=== PATIENT | female | born 1945 | race Caucasian/White ===

== ENCOUNTER 2019-09-14 08:37 | Day surgery (SDC) | payer MEDICARE, OTHER ==
[2019-09-14] VITALS (9 sets, daily range): BP systolic 125–166; BP diastolic 71–93
[~2019-09-14] VITALS: Ht 160 cm; Wt 120.2 kg
[~2019-09-14 08:37] MED LIST: METO50TA17 PO
[2019-09-14] MEDS ORDERED: normal saline 1,000 ML IV SCH (09:05)
[2019-09-14] MEDS ORDERED: diphenhydrAMINE 25mg capsule PO PRN (09:05)
[2019-09-14 09:40] LABS: BASOPHILS % (AUTO) 0.5 % (0-1); EOSINOPHILS # (AUTO) 0.2 X10'3 (0-0.9); EOSINOPHILS % (AUTO) 1.9 % (0-6); HEMATOCRIT 42.7 % (35.0-45.0); HEMOGLOBIN 14.6 g/dl (12.0-16.0); LYMPHOCYTES # (AUTO) 1.9 X10'3 (1.1-4.8); LYMPHOCYTES % (AUTO) 24.2 % (21-51); MEAN CORPUSCULAR HEMOGLOBIN 31.4 PG (27.0-31.0); MEAN CORPUSCULAR HGB CONC 34.2 g/dL (33.0-36.5); MEAN CORPUSCULAR VOLUME 91.6 FL (78-98); MEAN PLATELET VOLUME 8.2 FL (7.4-10.4); MONOCYTES # (AUTO) 0.5 X10'3 (0-0.9); MONOCYTES % (AUTO) 6.7 % (2-12); NEUTROPHILS # (AUTO) 5.4 X10'3 (1.8-7.7); NEUTROPHILS % (AUTO) 66.7 % (42-75); PLATELET COUNT 260 X10'3 (140-440); RED BLOOD COUNT 4.66 X10'6 (4.20-5.60); RED CELL DISTRIBUTION WIDTH 13.9 % (11.5-14.5)
[2019-09-14] MEDS ORDERED: GABA-532 PO (09:46)
[2019-09-14] MEDS ORDERED: PARO10TA85 PO (09:46)
[2019-09-14] MEDS ORDERED: DILT120C51 PO (09:46)
[2019-09-14] MEDS ORDERED: TIZA4CAP PO (09:46)
[2019-09-14] MEDS ORDERED: MESA800T PO (09:46)
[2019-09-14] MEDS ORDERED: OXYB5TAB16 PO (09:46)
[2019-09-14] MEDS ORDERED: DABI150C PO (09:46)
[2019-09-14] MEDS ORDERED: ATOR20TA PO (09:46)
[2019-09-14] MEDS ORDERED: METH-360 PO (09:46)
[2019-09-14 09:48] LABS: ALBUMIN 3.4 G/DL (3.4-5.0); ANION GAP 11 (8-16); BLOOD UREA NITROGEN 25 MG/DL (7-18); BUN/CREATININE RATIO 18.5 (6.6-38.0); CALCIUM 9.6 MG/DL (8.5-10.1); CHLORIDE 107 MMOL/L (99-107); CREATININE 1.35 MG/DL (0.40-0.90); GLUCOSE 112 MG/DL (70-104); MAGNESIUM 1.6 MG/DL (1.5-2.4); POTASSIUM 3.6 MMOL/L (3.5-5.1); SODIUM 145 MMOL/L (135-145); TOTAL CARBON DIOXIDE 27.4 MMOL/L (24-32); eGFR 39 ML/MIN
[2019-09-14] MEDS ORDERED: iohexol 350 MG/ML 50ML vial IV ONE (10:40)
[2019-09-14] MEDS ORDERED: midazolam 2 mg/2 ml injection ONE ×2 (10:40→11:19)
[2019-09-14] MEDS ORDERED: iohexol 350MG/ML 100ml bottle IV ONE (10:40)
[2019-09-14] MEDS ORDERED: LIDOcaine 1% (10mg/ml)w/preservative injection 20ml MDV ONE (10:40)
[2019-09-14] MEDS ORDERED: fentaNYL/PF 50MCG/1 ML 2ML syringe ONE (10:40)
[2019-09-14] MEDS ORDERED: nitroGLYCERIN-Tridil 50MG/D5W 250 ML IV ONE (11:13)
[2019-09-14] MEDS ORDERED: heparin 1,000unit/ml 10ml vial 10 ML ONE (11:13)
[2019-09-14] MEDS ORDERED: verapamil 2.5 mg/ml inj IV ONE (11:13)
[2019-09-14] MEDS ORDERED: proCHLORperazine 10 MG/2 ml inj IV PRN (12:40)
[2019-09-14] MEDS ORDERED: HYDROcodone/acetaminophen 5mg/325mg tablet PO PRN (12:40)
[2019-09-14] MEDS ORDERED: HYDROcodone/acetaminophen 10/325mg tab PO PRN (12:40)
[2019-09-14] MEDS ORDERED: ondansetron/PF 4mg/2ml inj IV PRN (12:40)
[2019-09-14] MEDS ORDERED: acetaminophen 325mg tablet PO PRN (12:40)
== END 2019-09-14 15:55 | disposition home or self-care (01) ==
LOC: SSTAY O 08:37
PROVIDERS: ATTEND Internal Medicine Cardiovascular Disease
DX: R94.39 Abnormal result of other cardiovascular function study (principal); R07.89 Other chest pain; I10 Essential (primary) hypertension; E66.9 Obesity, unspecified; Z68.42 Body mass index [BMI] 45.0-49.9, adult; E78.5 Hyperlipidemia, unspecified; Z87.891 Personal history of nicotine dependence; Z79.899 Other long term (current) drug therapy
CPT/HCPCS: 36415; 80048; 83735; 85025; 85610; 93458; 99152; 99153; C1769; C1894; J1644; J2001; J2250; J3010; J7030; Q0163; Q9967; A4620; A5120; C1760; J3490

== ENCOUNTER 2022-02-19 18:49 | Inpatient (IN) | payer MEDICARE, OTHER ==
[~2022-02-19] VITALS: Ht 160 cm; Wt 90.9 kg
[~2022-02-19 18:49] MED LIST changes: +ATOR20TA PO; +DABI150C PO; +DILT120C51 PO; +GABA-532 PO; +MESA800T PO; +METH-360 PO; -METO50TA17 PO; +OXYB5TAB16 PO; +PARO10TA85 PO; +TIZA4CAP PO
--- NOTE | 2022-02-19 19:39 | NUR ---
PT ROOMED IN BED 16.
--- NOTE | 2022-02-19 19:45 | NUR ---
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
[2022-02-19 19:54] LABS: BASOPHILS # (AUTO) 0.1 X10'3 (0-0.2); BASOPHILS % (AUTO) 0.5 % (0-1); EOSINOPHILS % (AUTO) 0.4 % (0-6); HEMATOCRIT 42.4 % (35.0-45.0); HEMOGLOBIN 14.1 g/dl (12.0-16.0); LYMPHOCYTES # (AUTO) 2.4 X10'3 (1.1-4.8); LYMPHOCYTES % (AUTO) 22.1 % (21-51); MEAN CORPUSCULAR HEMOGLOBIN 30.5 PG (27.0-31.0); MEAN CORPUSCULAR HGB CONC 33.4 g/dL (33.0-36.5); MEAN CORPUSCULAR VOLUME 91.3 FL (78-98); MEAN PLATELET VOLUME 8.6 FL (7.4-10.4); MONOCYTES # (AUTO) 0.9 X10'3 (0-0.9); MONOCYTES % (AUTO) 8.6 % (2-12); NEUTROPHILS # (AUTO) 7.4 X10'3 (1.8-7.7); NEUTROPHILS % (AUTO) 68.4 % (42-75); PLATELET COUNT 287 X10'3 (140-440); RED BLOOD COUNT 4.64 X10'6 (4.20-5.60); RED CELL DISTRIBUTION WIDTH 14.2 % (11.5-14.5); WHITE BLOOD COUNT 10.8 X10'3 (4.5-11.0)
--- NOTE | 2022-02-19 19:55 | NUR ---
IN ROOM TALKING TO PT.
[2022-02-19] MEDS ORDERED: diltiazem 5mg/ml 5ml inj. IV ONE ×2 (20:00→21:15)
--- NOTE | 2022-02-19 20:05 | NUR ---
WAITING FOR PHARMACY TO VERIFY MEDS.
[2022-02-19 20:13] LABS: ALANINE AMINOTRANSFERASE 63 U/L (12-78); ALBUMIN 3.7 G/DL (3.4-5.0); ALBUMIN/GLOBULIN RATIO 0.9 (1.1-1.5); ALKALINE PHOSPHATASE 55 IU/L (46-116); ANION GAP 16 (8-16); ASPARTATE AMINO TRANSFERASE 68 U/L (10-37); BILIRUBIN,TOTAL 1.1 MG/DL (0.1-1.0); BLOOD UREA NITROGEN 33 MG/DL (7-18); BUN/CREATININE RATIO 25.2 (6.6-38.0); CHLORIDE 108 MMOL/L (99-107); CREATININE 1.31 MG/DL (0.40-0.90); GLUCOSE 132 MG/DL (70-104); LIPASE 148 U/L (73-393); SODIUM 144 MMOL/L (135-145); TOTAL CARBON DIOXIDE 20.2 MMOL/L (24-32); TOTAL PROTEIN 7.9 G/DL (6.4-8.2); eGFR 40 ML/MIN
[2022-02-19 20:21] LABS: CLARITY,URINE CLOUDY (Clear); COLOR,URINE YELLOW (Yellow); GLUCOSE, URINE NEGATIVE (Neg); KETONES,URINE TRACE mg/dl (Neg); LEUKOCYTE ESTERASE ,URINE TRACE (Neg); NITRITES, URINE POSITIVE (Neg); OCCULT BLOOD,URINE SMALL (Neg); PH,URINE 5.5 (4.8-8.0); PROTEIN,URINE >=300 mg/dl (Neg)
[2022-02-19 20:24] LABS: CALCIUM 9.8 MG/DL (8.5-10.1)
[2022-02-19 20:32] LABS: UA COLLECTION TYPE CLN CATCH MIDSTREAM
[2022-02-19 20:36] LABS: WBC,URINE 20-30 /HPF (0-4)
[2022-02-19 20:37] LABS: BACTERIA,URINE 4+ /HPF (Neg)
[2022-02-19 20:38] LABS: MUCUS STRANDS FEW /LPF (Neg); SQUAMOUS EPITHELIAL CELL,UR MANY /LPF (FEW); WBC CLUMPS,URINE FEW /HPF (NEGATIVE)
--- NOTE | 2022-02-19 21:09 | NUR ---
spoke to MD concerning pt's continued tachycardia. MD will place new medication orders.
[2022-02-19] MEDS ORDERED: ringers solution, lacted 1,000 ML IV ONE (21:15)
[2022-02-19] MEDS ORDERED: CefTRIAXone 2gm/NS 100ml IVPB 100 ML IV ONE (21:30)
[2022-02-19] MEDS ORDERED: LORazepam 2 mg/ml vial IV ONE (21:35)
[2022-02-19] MEDS ORDERED: magnesium 2GM in 50ml NS 50 ML IV PRN (22:45)
[2022-02-19] MEDS ORDERED: potassium CL 10mEq/100ml bag 100 ML IV PRN (22:45)
[2022-02-19] MEDS ORDERED: PERFLUTREN PROTEIN-A MICROSPHR (Optison) 0.22 MG/ML 3ML VIAL IV PRN (22:45)
[2022-02-19] MEDS ORDERED: acetaminophen 325mg tablet PO PRN (22:45)
[2022-02-19] MEDS ORDERED: HYDROcodone/acetaminophen 10/325mg tab PO PRN (22:45)
[2022-02-19] MEDS ORDERED: potassium Cl 20 mEq SR tablet PO PRN ×2 (22:45)
[2022-02-19] MEDS ORDERED: ondansetron/PF 4mg/2ml inj IV PRN (22:45)
[2022-02-19] MEDS ORDERED: magnesium 4gm in 100ml NS 100 ML IV PRN (22:45)
--- NOTE | 2022-02-19 23:05 | NUR ---
SPOKE TO . HOSPITALIST WILL PUT IN MEDICATION ORDERS FOR TACHYCARDIA
--- NOTE | 2022-02-19 23:18 | NUR ---
PAGED ABOUT MED NOT SHOWING UP YET.
[2022-02-19] MEDS: diltiazem-D5W 125mg/125ml 125 ML IV SCH (23:37)
[2022-02-20] VITALS (15 sets, daily range): BP systolic 102–135; BP diastolic 68–108
--- NOTE | 2022-02-20 | NUR ---
PT MOVED FROM [facility] TO HOSPITAL BED FOR COMFORT.
--- NOTE | 2022-02-20 00:47 | NUR ---
PAGED HOSPITALIST PT IS STILL TACHYCARDIC DESPITE CARDIZEM.
--- NOTE | 2022-02-20 00:51 | NUR ---
SPOKE TO DR JACOBS OVER THE PHONE. GIVEN T.O. TO BOLUS 10MG BOLUS OF CARDIZEM AND KEEP DRIP RATE AT 5 ORDERED.
[2022-02-20] MEDS ORDERED: diltiazem 5mg/ml 5ml inj. IV ONE (00:55)
[2022-02-20 06:03] LABS: BASOPHILS # (AUTO) 0.1 X10'3 (0-0.2); BASOPHILS % (AUTO) 0.8 % (0-1); EOSINOPHILS # (AUTO) 0.1 X10'3 (0-0.9); EOSINOPHILS % (AUTO) 0.9 % (0-6); HEMATOCRIT 37.9 % (35.0-45.0); HEMOGLOBIN 12.4 g/dl (12.0-16.0); LYMPHOCYTES # (AUTO) 2.5 X10'3 (1.1-4.8); LYMPHOCYTES % (AUTO) 28.8 % (21-51); MEAN CORPUSCULAR HEMOGLOBIN 30.1 PG (27.0-31.0); MEAN CORPUSCULAR HGB CONC 32.7 g/dL (33.0-36.5); MEAN CORPUSCULAR VOLUME 91.8 FL (78-98); MONOCYTES # (AUTO) 0.8 X10'3 (0-0.9); NEUTROPHILS # (AUTO) 5.3 X10'3 (1.8-7.7); NEUTROPHILS % (AUTO) 60.5 % (42-75); PLATELET COUNT 246 X10'3 (140-440); RED BLOOD COUNT 4.13 X10'6 (4.20-5.60); RED CELL DISTRIBUTION WIDTH 14.7 % (11.5-14.5); WHITE BLOOD COUNT 8.7 X10'3 (4.5-11.0)
[2022-02-20 06:13] LABS: ALANINE AMINOTRANSFERASE 69 U/L (12-78); ALBUMIN/GLOBULIN RATIO 0.8 (1.1-1.5); ALKALINE PHOSPHATASE 44 IU/L (46-116); ANION GAP 9 (8-16); ASPARTATE AMINO TRANSFERASE 68 U/L (10-37); BILIRUBIN,TOTAL 0.6 MG/DL (0.1-1.0); BLOOD UREA NITROGEN 34 MG/DL (7-18); BUN/CREATININE RATIO 32.1 (6.6-38.0); CALCIUM 9.2 MG/DL (8.5-10.1); CHLORIDE 110 MMOL/L (99-107); CREATININE 1.06 MG/DL (0.40-0.90); GLUCOSE 103 MG/DL (70-104); SODIUM 142 MMOL/L (135-145); TOTAL CARBON DIOXIDE 23.4 MMOL/L (24-32); TOTAL PROTEIN 6.7 G/DL (6.4-8.2); eGFR 51 ML/MIN
[2022-02-20 06:14] LABS: MAGNESIUM 1.8 MG/DL (1.5-2.4)
[2022-02-20 06:17] LABS: POTASSIUM 3.8 MMOL/L (3.5-5.1)
--- NOTE | 2022-02-20 06:40 | NUR ---
Problems reprioritized. Patient report given,Vanessa RN questions answered & plan of care reviewed with .
[2022-02-20] MEDS: K and/or MAG REPLACEMENT MC SCH ×2 (08:00→19:52)
[2022-02-20] MEDS: docusate sod 100mg capsule PO SCH ×2 (08:25→19:44)
[2022-02-20] MEDS: dabigatran 150mg capsule PO SCH ×2 (08:25→19:45)
[2022-02-20] MEDS ORDERED: PANT40TA54 PO (10:52)
[2022-02-20] MEDS ORDERED: DILT120C91 PO (10:52)
[2022-02-20] MEDS ORDERED: BUPR-317 PO (10:52)
[2022-02-20] MEDS ORDERED: PARO40TA4 PO (10:52)
[2022-02-20] MEDS ORDERED: TIZA-205 PO (10:52)
[2022-02-20] MEDS ORDERED: GABA300C PO (10:52)
[2022-02-20] MEDS ORDERED: PARO10TA4 PO (10:52)
[2022-02-20] MEDS ORDERED: NITR0.4T48 SL (10:52)
[2022-02-20] MEDS ORDERED: MESA800T9 PO (10:52)
[2022-02-20] MEDS ORDERED: TOPI25TA49 PO (10:52)
[2022-02-20] MEDS ORDERED: LISI40TA13 PO (10:52)
[2022-02-20] MEDS ORDERED: METH-797 PO (10:52)
[2022-02-20] MEDS ORDERED: PROP10TA10 PO (10:52)
[2022-02-20] MEDS ORDERED: ATOR20TA66 PO (10:52)
[2022-02-20] MEDS ORDERED: FURO20TA4 PO (10:52)
[2022-02-20] MEDS ORDERED: TRIA15CR61 TOP (10:52)
--- NOTE | 2022-02-20 18:20 | NUR ---
Patient in room PCU 3026. I have received report from Vanessa HIDALGO, and had the opportunity to ask questions and assume patient care.
[2022-02-20] MEDS: diltiazem-D5W 125mg/125ml 125 ML IV SCH (19:47)
[2022-02-20] MEDS: HYDROcodone/acetaminophen 5mg/325mg tablet PO PRN ×2 (22:07→23:53)
[2022-02-20] MEDS: acetaminophen 325mg tablet PO PRN (22:14)
[2022-02-21] VITALS: BP 120/88
[2022-02-21 02:00] VITALS: BP 121/84
[2022-02-21 03:00] VITALS: BP 109/89
[2022-02-21] MEDS: acetaminophen 325mg tablet PO PRN ×2 (03:47→16:30)
[2022-02-21 06:20] LABS: BASOPHILS # (AUTO) 0.1 X10'3 (0-0.2); BASOPHILS % (AUTO) 0.6 % (0-1); EOSINOPHILS # (AUTO) 0.2 X10'3 (0-0.9); EOSINOPHILS % (AUTO) 1.8 % (0-6); HEMATOCRIT 38.6 % (35.0-45.0); LYMPHOCYTES # (AUTO) 1.9 X10'3 (1.1-4.8); LYMPHOCYTES % (AUTO) 20.8 % (21-51); MEAN CORPUSCULAR HEMOGLOBIN 31.3 PG (27.0-31.0); MEAN CORPUSCULAR HGB CONC 33.6 g/dL (33.0-36.5); MEAN CORPUSCULAR VOLUME 93.1 FL (78-98); MEAN PLATELET VOLUME 8.9 FL (7.4-10.4); MONOCYTES # (AUTO) 0.7 X10'3 (0-0.9); MONOCYTES % (AUTO) 7.4 % (2-12); NEUTROPHILS # (AUTO) 6.3 X10'3 (1.8-7.7); NEUTROPHILS % (AUTO) 69.4 % (42-75); PLATELET COUNT 257 X10'3 (140-440); RED BLOOD COUNT 4.15 X10'6 (4.20-5.60); RED CELL DISTRIBUTION WIDTH 14.8 % (11.5-14.5); WHITE BLOOD COUNT 9.1 X10'3 (4.5-11.0)
[2022-02-21 06:21] LABS: ALANINE AMINOTRANSFERASE 99 U/L (12-78); ALBUMIN 3.1 G/DL (3.4-5.0); ALBUMIN/GLOBULIN RATIO 0.8 (1.1-1.5); ALKALINE PHOSPHATASE 55 IU/L (46-116); ANION GAP 10 (8-16); ASPARTATE AMINO TRANSFERASE 75 U/L (10-37); BILIRUBIN,TOTAL 0.5 MG/DL (0.1-1.0); BLOOD UREA NITROGEN 29 MG/DL (7-18); BUN/CREATININE RATIO 31.2 (6.6-38.0); CALCIUM 9.6 MG/DL (8.5-10.1); CHLORIDE 111 MMOL/L (99-107); CREATININE 0.93 MG/DL (0.40-0.90); GLUCOSE 99 MG/DL (70-104); POTASSIUM 3.8 MMOL/L (3.5-5.1); SODIUM 144 MMOL/L (135-145); TOTAL CARBON DIOXIDE 23.2 MMOL/L (24-32); TOTAL PROTEIN 7.2 G/DL (6.4-8.2); eGFR 59 ML/MIN
--- NOTE | 2022-02-21 06:30 | NUR ---
Problems reprioritized. Patient report given,Vanessa RN, questions answered & plan of care reviewed with .
[2022-02-21 07:00] VITALS: BP 141/80
[2022-02-21] MEDS: K and/or MAG REPLACEMENT MC SCH ×2 (08:00→20:00)
[2022-02-21] MEDS: MESALAMINE 800 MG PO SCH (08:00)
[2022-02-21] MEDS: docusate sod 100mg capsule PO SCH ×2 (08:56→20:00)
[2022-02-21] MEDS: topiramate 25mg tablet PO SCH ×2 (08:56→19:36)
[2022-02-21] MEDS: lisinopril 20mg tablet PO SCH (08:57)
[2022-02-21] MEDS: buPROPion SR 150mg tablet PO SCH (08:57)
[2022-02-21] MEDS: atorvastatin 20mg tablet PO SCH (08:57)
[2022-02-21] MEDS: pantoprazole 40mg Tablet.DR PO SCH (08:58)
[2022-02-21] MEDS: PARoxetine 10mg tablet PO SCH (08:58)
[2022-02-21] MEDS: propranolol 10mg tablet PO SCH ×2 (08:58→19:36)
[2022-02-21] MEDS: dabigatran 150mg capsule PO SCH ×2 (09:08→19:36)
[2022-02-21] MEDS: diltiazem CD 120mg capsule (once-daily) PO SCH (10:00)
[2022-02-21 11:00] VITALS: BP 120/82
[2022-02-21 15:00] VITALS: BP 107/77
--- NOTE | 2022-02-21 17:08 | NUR ---
MESSAGE: ROOM 3026 Pt Dontrell Warren's son Max Arroyo [phone] Per respiratory therapist, this patient needs order for BIPAP Order for eval. and treat. Thank you Vanessa/ROCKY PCU [id number]
--- NOTE | 2022-02-21 18:20 | NUR ---
Problems reprioritized. Patient report given, Vanessa RN, questions answered & plan of care reviewed with .
[2022-02-21] MEDS ORDERED: loperamide 2mg capsule PO PRN (18:45)
[2022-02-22] VITALS (11 sets, daily range): BP systolic 95–145; BP diastolic 53–95
[2022-02-22] MEDS: guaiFENesin 200 MG/10 ML oral syrup UD cup PO PRN ×2 (00:58→20:24)
[2022-02-22] MEDS: ipratropium/albuterol 3ml nebule NEB PRN ×2 (01:19→08:13)
--- NOTE | 2022-02-22 02:00 | NUR ---
pt tolerate all med and states she feel better after breathing treatment and Chance continue to monitor pt.
[2022-02-22 06:04] LABS: BASOPHILS % (AUTO) 0.5 % (0-1); EOSINOPHILS # (AUTO) 0.1 X10'3 (0-0.9); EOSINOPHILS % (AUTO) 1.5 % (0-6); HEMATOCRIT 41.6 % (35.0-45.0); HEMOGLOBIN 13.9 g/dl (12.0-16.0); LYMPHOCYTES # (AUTO) 0.7 X10'3 (1.1-4.8); LYMPHOCYTES % (AUTO) 7.7 % (21-51); MEAN CORPUSCULAR HEMOGLOBIN 30.6 PG (27.0-31.0); MEAN CORPUSCULAR HGB CONC 33.3 g/dL (33.0-36.5); MEAN CORPUSCULAR VOLUME 91.8 FL (78-98); MONOCYTES # (AUTO) 0.3 X10'3 (0-0.9); MONOCYTES % (AUTO) 3.6 % (2-12); NEUTROPHILS # (AUTO) 7.9 X10'3 (1.8-7.7); NEUTROPHILS % (AUTO) 86.7 % (42-75); PLATELET COUNT 264 X10'3 (140-440); RED BLOOD COUNT 4.54 X10'6 (4.20-5.60); RED CELL DISTRIBUTION WIDTH 14.6 % (11.5-14.5); WHITE BLOOD COUNT 9.1 X10'3 (4.5-11.0)
[2022-02-22 06:12] LABS: ALANINE AMINOTRANSFERASE 84 U/L (12-78); ALBUMIN 3.1 G/DL (3.4-5.0); ALBUMIN/GLOBULIN RATIO 0.8 (1.1-1.5); ALKALINE PHOSPHATASE 51 IU/L (46-116); ANION GAP 9 (8-16); ASPARTATE AMINO TRANSFERASE 46 U/L (10-37); BILIRUBIN,TOTAL 0.8 MG/DL (0.1-1.0); BLOOD UREA NITROGEN 28 MG/DL (7-18); BUN/CREATININE RATIO 28.6 (6.6-38.0); CALCIUM 9.7 MG/DL (8.5-10.1); CHLORIDE 111 MMOL/L (99-107); CREATININE 0.98 MG/DL (0.40-0.90); GLUCOSE 124 MG/DL (70-104); MAGNESIUM 1.8 MG/DL (1.5-2.4); SODIUM 142 MMOL/L (135-145); TOTAL CARBON DIOXIDE 22.2 MMOL/L (24-32); TOTAL PROTEIN 6.9 G/DL (6.4-8.2); eGFR 55 ML/MIN
[2022-02-22 06:14] LABS: POTASSIUM 4.1 MMOL/L (3.5-5.1)
--- NOTE | 2022-02-22 06:45 | NUR ---
Problems reprioritized. Patient report given,Vanessa RN, questions answered & plan of care reviewed with .
[2022-02-22] MEDS: K and/or MAG REPLACEMENT MC SCH ×2 (07:37→20:00)
[2022-02-22] MEDS: buPROPion SR 150mg tablet PO SCH (08:00)
[2022-02-22] MEDS: docusate sod 100mg capsule PO SCH ×2 (08:00→20:00)
[2022-02-22] MEDS: PARoxetine 10mg tablet PO SCH (08:00)
[2022-02-22] MEDS: diltiazem CD 120mg capsule (once-daily) PO SCH (08:00)
[2022-02-22] MEDS: dabigatran 150mg capsule PO SCH ×2 (08:00→21:09)
[2022-02-22] MEDS: pantoprazole 40mg Tablet.DR PO SCH (08:14)
[2022-02-22] MEDS: propranolol 10mg tablet PO SCH ×2 (08:14→21:08)
[2022-02-22] MEDS: atorvastatin 20mg tablet PO SCH (08:14)
[2022-02-22] MEDS: topiramate 25mg tablet PO SCH ×2 (08:14→21:08)
[2022-02-22] MEDS: lisinopril 20mg tablet PO SCH (08:20)
--- NOTE | 2022-02-22 10:31 | NUR ---
Initial: Pt presented with c/o SOB and admit for A.fib with RVR and elevated proBNP without any signs of overt CHF on chest x-ray per H&P. Pt on a heart healthy diet and eating well, documented with 100% PO intake throughout LOS meeting estimated nutrient needs. [facility] 02/21. No nutrition intervention implemented at this time. Will continue to follow. Recommendations: 1) Liberalize to regular diet 2) Monitor need for additional protein for satiety 3) Routine bowel care 4) Weekly scaled weights Addendum: 02/22/22 at [address] Amended: Links added.
[2022-02-22] MEDS: diltiazem-D5W 125mg/125ml 125 ML IV SCH (11:11)
[2022-02-22] MEDS: acetaminophen 325mg tablet PO PRN ×2 (13:00→20:24)
[2022-02-22] MEDS: amiodarone 200mg tablet PO SCH (21:10)
[2022-02-22] MEDS ORDERED: mag hydrox/Alum hydrox/simeth 30ml oral suspension PO PRN (22:50)
--- NOTE | 2022-02-22 23:35 | NUR ---
Pt lost IV access. New access obtained. RN noted pt BP 95/53 (63). HR remains afib 80s-100s. MD Levy made aware. pt on cardizem gtt @5mcg/hr. Per MD okay to maintain pt on gtt. pt denies lightheadedness/dizziness. pt remains on continuos monitor Q1hr BPs cycling. will continue to monitor and follow up with MD with any changes/concerns.
[2022-02-23] VITALS (7 sets, daily range): BP systolic 93–112; BP diastolic 50–95
[2022-02-23] MEDS: acetaminophen 325mg tablet PO PRN ×2 (04:15→14:55)
[2022-02-23 06:18] LABS: BASOPHILS % (AUTO) 0.6 % (0-1); EOSINOPHILS # (AUTO) 0.3 X10'3 (0-0.9); HEMATOCRIT 38.1 % (35.0-45.0); HEMOGLOBIN 12.6 g/dl (12.0-16.0); LYMPHOCYTES # (AUTO) 0.9 X10'3 (1.1-4.8); LYMPHOCYTES % (AUTO) 12.1 % (21-51); MEAN CORPUSCULAR HEMOGLOBIN 30.9 PG (27.0-31.0); MEAN CORPUSCULAR HGB CONC 33.1 g/dL (33.0-36.5); MEAN CORPUSCULAR VOLUME 93.4 FL (78-98); MEAN PLATELET VOLUME 9.2 FL (7.4-10.4); MONOCYTES # (AUTO) 0.3 X10'3 (0-0.9); MONOCYTES % (AUTO) 4.3 % (2-12); NEUTROPHILS # (AUTO) 5.6 X10'3 (1.8-7.7); PLATELET COUNT 250 X10'3 (140-440); RED BLOOD COUNT 4.08 X10'6 (4.20-5.60); RED CELL DISTRIBUTION WIDTH 14.9 % (11.5-14.5); WHITE BLOOD COUNT 7.1 X10'3 (4.5-11.0)
[2022-02-23 06:42] LABS: ALANINE AMINOTRANSFERASE 68 U/L (12-78); ALBUMIN 2.8 G/DL (3.4-5.0); ALBUMIN/GLOBULIN RATIO 0.8 (1.1-1.5); ALKALINE PHOSPHATASE 54 IU/L (46-116); ANION GAP 11 (8-16); ASPARTATE AMINO TRANSFERASE 25 U/L (10-37); BILIRUBIN,TOTAL 0.4 MG/DL (0.1-1.0); BLOOD UREA NITROGEN 29 MG/DL (7-18); BUN/CREATININE RATIO 25.2 (6.6-38.0); CALCIUM 9.6 MG/DL (8.5-10.1); CHLORIDE 108 MMOL/L (99-107); CREATININE 1.15 MG/DL (0.40-0.90); GLUCOSE 112 MG/DL (70-104); MAGNESIUM 1.9 MG/DL (1.5-2.4); POTASSIUM 3.9 MMOL/L (3.5-5.1); SODIUM 140 MMOL/L (135-145); TOTAL CARBON DIOXIDE 21.5 MMOL/L (24-32); TOTAL PROTEIN 6.5 G/DL (6.4-8.2); eGFR 46 ML/MIN
[2022-02-23] MEDS ORDERED: diltiazem CD 120mg capsule (once-daily) PO SCH (08:00)
[2022-02-23] MEDS: docusate sod 100mg capsule PO SCH (08:21)
[2022-02-23] MEDS: buPROPion SR 150mg tablet PO SCH (08:21)
[2022-02-23] MEDS: propranolol 10mg tablet PO SCH (08:21)
[2022-02-23] MEDS: atorvastatin 20mg tablet PO SCH (08:21)
[2022-02-23] MEDS: PARoxetine 10mg tablet PO SCH (08:21)
[2022-02-23] MEDS: pantoprazole 40mg Tablet.DR PO SCH (08:21)
[2022-02-23] MEDS: amiodarone 200mg tablet PO SCH (08:21)
[2022-02-23] MEDS: topiramate 25mg tablet PO SCH (08:21)
[2022-02-23] MEDS: dabigatran 150mg capsule PO SCH (08:28)
[2022-02-23] MEDS: MESALAMINE 800 MG PO SCH (08:28)
[2022-02-23] MEDS: lisinopril 20mg tablet PO SCH (08:29)
[2022-02-23] MEDS: K and/or MAG REPLACEMENT MC SCH (08:32)
[2022-02-23] MEDS: diltiazem-D5W 125mg/125ml 125 ML IV SCH (11:30)
--- NOTE | 2022-02-23 11:44 | NUR ---
Cardizem held at [address] Gleason, Patient on RA sating 93-94% throughout morning.
[2022-02-23] MEDS ORDERED: DABI150C PO (15:27)
[2022-02-23] MEDS ORDERED: AMIO200T67 PO (15:27)
[2022-02-23] MEDS ORDERED: ondansetron 4mg rapidly disintigrating tab PO PRN (16:00)
[2022-02-23] MEDS: ipratropium/albuterol 3ml nebule NEB PRN (16:10)
[2022-02-24] MEDS ORDERED: diltiazem CD 120mg capsule (once-daily) PO SCH (08:00)
== END 2022-02-23 17:59 | disposition home health service (06) | DRG 280 ==
LOC: ER 18:50 → ED HOLD 22:52 → UNDOADMIN 22:52 → PCU 3S 02-20 02:30 → ED HOLD 02-20 02:30
PROVIDERS: ADMIT Family Medicine; ATTEND Family Medicine
DX: I48.91 Unspecified atrial fibrillation (principal); I21.A1 Myocardial infarction type 2; N17.0 Acute kidney failure with tubular necrosis; I50.21 Acute systolic (congestive) heart failure; N39.0 Urinary tract infection, site not specified; G90.50 Complex regional pain syndrome I, unspecified; R00.0 Tachycardia, unspecified; R41.3 Other amnesia; K58.0 Irritable bowel syndrome with diarrhea; M79.7 Fibromyalgia; I08.1 Rheumatic disorders of both mitral and tricuspid valves; Z79.01 Long term (current) use of anticoagulants; Z79.899 Other long term (current) drug therapy; Z80.3 Family history of malignant neoplasm of breast; Z80.6 Family history of leukemia; Z88.5 Allergy status to narcotic agent; Z91.040 Latex allergy status; Z91.048 Other nonmedicinal substance allergy status
CPT/HCPCS: 36415; 71045; 80053; 81001; 83690; 83735; 83880; 84484; 85025; 87081; 93306; 93970; 94640; 94760; 96361; 96374; 96375; 96376; 97110; 97116; 97161; 97530; 99285; G0378; J0696; J2060; J3490; J7120